=== PATIENT | male | born 1955 | race Caucasian/White ===

== ENCOUNTER 2023-10-29 10:39 | Emergency (ER) | payer MEDICARE, SELFPAY ==
[2023-10-29 10:44] VITALS: BP 157/95; PULSE 103; RESP 12; TEMP 36.9; O2SAT 97
[2023-10-29 10:51] VITALS: RESP 12
--- NOTE | 2023-10-29 11:34 | W.ED.GENAD ---
Discharge Plan Disposition Patient Disposition: Home Condition: Stable Discharge Details Clinical Impression: COVID-19 Primary Care Provider: Precious,Local ED Provider: Lux Charles Home Meds and New Rx's Prescriptions: New Paxlovid 300 mg (150 mg x 2)-100 mg tablets,dose pack See Rx Instructions .ROUTE .COMPLEX Qty: 30 0RF Rx Instructions: take TWO 150 mg tablets of nirmatrelvir with ONE 100 mg tablet of ritonavir twice daily for 5 days Continued losartan [Cozaar] 25 mg tablet 25 mg PO DAILY Discharge Instructions Instructions: COVID-19 ED Additional Instructions: Please drink plenty of fluids to stay hydrated. Allow for plenty of rest. Please contact your primary care physician to arrange follow-up. Return to the ER immediately for any worsening or new concerning symptoms. HPI General Mode of arrival: ambulatory. Date/Time Provider Initiated Documentation: 10/29/23 11:11. Limitations to Documentation: no limitations. Information obtained by: patient. HPI Narrative: 68-year-old male with history of hypertension here with 4 days of URI symptoms, fatigue, cough, had low home pulse ox reported in the 70s. Patient denies shortness of breath. No chest pain. Patient was positive for home COVID test. His who also has symptoms over the past 1 day is positive for COVID. Related Data Home Medications ?Medication ?Instructions ?Recorded ?Confirmed losartan 25 mg tablet (Cozaar) 25 mg PO DAILY 10/29/23 10/29/23 nirmatrelvir 300 mg (150 mg See Rx Instructions PO .COMPLEX 10/29/23 x2)-ritonavir 100 mg tablet,dose #30 dose pk pack (Paxlovid) Previous Rx's ?Medication ?Instructions ?Recorded nirmatrelvir 300 mg (150 mg See Rx Instructions PO .COMPLEX 10/29/23 x2)-ritonavir 100 mg tablet,dose #30 dose pk pack (Paxlovid) Allergies Allergy/AdvReac Type Severity Reaction Status Date / Time No Known Allergies Allergy Unverified 10/29/23 10:50 General Stated Complaint: GenMedical KARLA: 4 Review of Systems Constitutional Constitutional: Reports as per HPI, Reports fatigue, Denies fever(s) and Reports lethargy Cardiovascular Cardiovascular: Denies chest pain and Denies dyspnea Respiratory Respiratory: Reports cough and Denies dyspnea Endocrine Endocrine: Reports fatigue Exam Const General: cooperative and no acute distress [facility] Mouth: mucous membranes dry Eyes Conjunctivae: normal conjunctivae Sclera: normal sclerae Resp Auscultation: clear to auscultation bilaterally, no rales, no rhonchi and no wheezes Cardio Rate: regular rate and not tachycardic Rhythm: regular rhythm Neuro General: patient alert, patient awake and tone normal Extrem General: no edema Course Vital Signs Vital signs: Vital Signs Temperature 36.9 C 10/29/23 10:44 Pulse 103 H 10/29/23 10:44 Respiratory Rate 12 10/29/23 10:44 Blood Pressure 157/95 H 10/29/23 10:44 Pulse Oximetry 97 10/29/23 10:44 Temperature 36.9 C 10/29/23 10:44 Pulse 103 H 10/29/23 10:44 Respiratory Rate 12 10/29/23 10:51 Respiratory Effort Normal, Non-Labored, Short of Breath 10/29/23 10:51 Respiratory Depth Normal 10/29/23 10:51 Respiratory Pattern Normal 10/29/23 10:51 Blood Pressure 157/95 H 10/29/23 10:44 Blood Pressure Position Sitting 10/29/23 10:44 Pulse Oximetry 97 10/29/23 10:44 Oxygen Delivery Method Room Air 10/29/23 10:44 Oxygen Flow Rate 0 10/29/23 10:44 Pain Level 0 10/29/23 10:44 Medical Decision Making 68-year-old male here with URI symptoms, cough, fatigue over the past 4 days, positive home COVID test. sick with similar over the past day and also positive. Patient has no shortness of breath or chest pain. He had low saturation on home pulse ox today but is saturating well here in no respiratory distress and is hemodynamically stable. Plan to initiate antiviral treatment. Discussed patient's medications with pharmacist who notes no severe interactions. Patient provided informed consent to treat. I discussed renal function with the patient, no recent labs on file here, [place] out of the [place]. He notes normal recent renal function. No indication to renally dose Paxlovid. Prescription for Paxlovid sent to pharmacy. Usual and customary discharge instructions were reviewed with the patient. He was encouraged to rest and drink plenty of fluid and return immediately should she have any worsening or new concerning symptoms. Quality:[facility] Related Social Needs: No Data to Display PFSH All Active Problems COVID-19 (Acute) Social History Smoking risk assessment performed?: No PAWSS Have you Been Recently Intoxicated or Drunk Within the Last 30 days?: No Have you Ever Experienced Previous Episodes of Alcohol Withdrawal?: No Have you ever Experienced Withdrawal Seizures?: No Have you ever Experienced Delirium Tremens(DT)s?: No Have you ever undergone Alcohol Rehabilitation Treatment (i.e, inpt ot outpatient treatment programs)?: No Have you ever Experienced Blackouts?: No Have you ever Combined Alcohol with other Downers within the last 90 days?: No Have you ever Combined Alcohol with any other Substance of Abuse during the last 90 days?: No Positive Blood Alcohol level on Presentation? [PCS.BAL]: No Evidence of Increased Autonomic Activity (i.e. HR>120, tremor, sweating, agitation, nausea)?: No Result: 0
[2023-10-29 12:15] LABS: Influenza A PCR Negative (Negative); Influenza B PCR Negative (Negative); RSV PCR Negative (Negative)
[2023-10-29 12:17] LABS: COVID-19 PCR Positive (Negative)
[2023-10-29 12:18] LABS: Source Nasopharynx
== END 2023-10-29 11:59 | disposition home or self-care (01) ==
LOC: ER 12:08
PROVIDERS: Emergency Provider Student in an Organized Health Care Education/Training Program
DX: U07.1 COVID-19 (principal)
CPT/HCPCS: 87637; 99283